=== PATIENT | male | born 1985 | race African-American/Black ===

== ENCOUNTER → 2021-01-26 11:29 | Outpatient (CLI) | payer OTHER, SELFPAY ==
[2021-01-26 15:39] LABS: Vitamin B12 1540 pg/mL (211-911); Vitamin D,25 Hydroxy 10.5 ng/mL
[2021-01-26 15:47] LABS: ALB/GLOB Ratio 0.8 RATIO (0.9-2.4); AST(SGOT) 30 U/L (15-37); Alanine Aminotransfer ALT/SGPT 50 U/L (16-61); Albumin, Serum 3.8 g/dL (3.2-5.0); Alkaline Phosphatase 51 U/L (45-117); Anion Gap 3 (5-15); BUN 13 mg/dL (7-18); BUN/Creat Ratio 10.2 RATIO (10-20); Calcium,Total 9.1 mg/dL (8.5-10.1); Chloride 106 mmol/L (98-107); Cholesterol 201 mg/dL (200); Creatinine, Serum 1.28 mg/dL (0.70-1.30); EST Glomerular Filtration Rate 67 mL/min (>60); Est Glom Filt Rate - Afr Amer 82 mL/min (>60); Globulin 4.7 g/dL (2.2-4.2); Glucose 82 mg/dL (74-106); High Density Lipoprotein 34 mg/dL; Potassium 4.1 mmol/L (3.5-5.1); Protein, Total 8.5 g/dL (6.4-8.2); Sodium Level 139 mmol/L (136-145); Thyroid Stim Hormone (TSH) 1.73 uIU/mL (0.358-3.74); Triglycerides 148 mg/dL; Very Low Density Lipoprotein 30 mg/dL (5-40)
== END ==
PROVIDERS: Visit Provider Family Medicine
DX: Z13.1 Encounter for screening for diabetes mellitus (principal)
CPT/HCPCS: 36415; 80053; 80061; 82306; 82607; 84443

== ENCOUNTER → 2023-09-26 | Outpatient (CLI) | payer OTHER, SELFPAY ==
[2023-09-26 11:03] LABS: Absolute Lymphocyte Count 2.07 X10^3/uL (0.83-4.51); Absolute Neutrophil Count 2.3 X10^3/uL (2.0-7.7); Basophil# 0.03 X10^3/uL; Basophil% 0.6 % (0-1); Eosinophils% 1.9 % (0-5); Hematocrit 43.9 % (40-54); Hemoglobin 13.8 g/dL (13.0-16.5); Lymphocyte # 2.07 X10^3/ul (0.83-4.51); Lymphocyte % 40.3 % (19-41); Mean Corp Hgb Conc 31.4 g/dL (32-36); Mean Corpuscular Hgb 29.3 pg (27.0-32.0); Mean Corpuscular Volume 93.2 fL (80-94); Mean Platelet Vol. 10.9 fl (6.2-12.0); Monocyte# 0.64 X10^3/uL; Monocyte% 12.5 % (0-10); NRBC Flagged by Analyzer 0 % (0-5); Neutrophil # 2.29 X10^3/uL (2.7-7.7); Neutrophil % 44.5 % (47-70); POSITIVE COUNT YES; RBC Distribution Width CV 12.6 % (11.6-14.6); RBC Distribution Width SD 43.5 fl (35.1-43.9); Red Blood Count 4.71 M/mm3 (4.6-6.2); White Blood Count 5.1 K/mm3 (4.4-11.0)
[2023-09-26 11:36] LABS: Vitamin D,25 Hydroxy 20.3 ng/mL
[2023-09-26 11:58] LABS: Differential Indicated SCAN CRITERIA MET
[2023-09-26 11:59] LABS: Platelet Estimate ADEQUATE (ADEQ)
[2023-09-26 12:03] LABS: ALB/GLOB Ratio 0.8 RATIO (0.9-2.4); AST(SGOT) 39 U/L (15-37); Alanine Aminotransfer ALT/SGPT 42 U/L (16-61); Albumin, Serum 3.6 g/dL (3.2-5.0); Alkaline Phosphatase 35 U/L (45-117); Anion Gap 5 (5-15); BUN 21 mg/dL (7-18); BUN/Creat Ratio 16.3 RATIO (10-20); Calcium,Total 8.7 mg/dL (8.5-10.1); Chloride 104 mmol/L (98-107); Creatinine, Serum 1.29 mg/dL (0.70-1.30); EST Glomerular Filtration Rate 66 mL/min (>60); Est Glom Filt Rate - Afr Amer 80 mL/min (>60); Globulin 4.5 g/dL (2.2-4.2); Glucose 81 mg/dL (74-106); Potassium 4.1 mmol/L (3.5-5.1); Protein, Total 8.1 g/dL (6.4-8.2); Sodium Level 137 mmol/L (136-145); Thyroid Stim Hormone (TSH) 0.87 uIU/mL (0.358-3.74)
== END | disposition home or self-care (01) ==
PROVIDERS: PCP Family Medicine; Referring Provider Family Medicine; Visit Provider Family Medicine
DX: R53.83 Other fatigue (principal); R79.89 Other specified abnormal findings of blood chemistry; R53.1 Weakness
CPT/HCPCS: 36415; 80053; 82306; 84403; 84443; 85025

== ENCOUNTER → 2024-10-22 | Outpatient (CLI) | payer OTHER, SELFPAY ==
--- NOTE | 2024-10-22 09:52 | RAD_ITS ---
STUDY: X-RAY - RIGHT KNEE REASON FOR EXAM: Male, 39 years old. RIght knee injury TECHNIQUE: 4 view(s) of the knee. COMPARISON: None. FINDINGS: Normal visualized distal femur. Normal visualized proximal tibia and fibula. Normal proximal tibiofibular articulation. Normal medial femorotibial compartment. Normal lateral femorotibial compartment. Normal patellofemoral articulation. There is a soft tissue prominence in the suprapatellar region suggesting a small volume joint effusion. The soft tissue structures are unremarkable. RAD/Knee 4 or More Views IMPRESSION: Effusion, as described above. MRI may be useful. Electronically Signed: James Meneses MD at 18:23 EST ,
== END | disposition home or self-care (01) ==
PROVIDERS: PCP Family Medicine; Referring Provider Family Medicine; Visit Provider Family Medicine
DX: S80.911A Unspecified superficial injury of right knee, initial encounter (principal); X58.XXXA Exposure to other specified factors, initial encounter
CPT/HCPCS: 73564

== ENCOUNTER → 2024-11-28 | Outpatient (CLI) | payer OTHER, SELFPAY ==
--- NOTE | 2024-11-28 06:45 | MRI_ITS ---
PROCEDURE: MRI right knee without IV contrast REASON FOR EXAM: Lateral-sided pain TECHNIQUE: Multisequence multiplanar MR images of the right knee were obtained without the administration of intravenous contrast. COMPARISON: None FINDINGS Possible small horizontal undersurface tear at the posterior body/horn junction of the medial meniscus. Remaining portions of the medial meniscus are intact. Tiny free edge tear at the body of the lateral meniscus. Remaining portions of the lateral meniscus are intact. Intact anterior and posterior cruciate ligaments. Intact extensor mechanism. Thickening and mildly increased signal of the proximal medial collateral ligament which may relate to chronic sprain. Lateral collateral ligamentous complex is intact. Semimembranosus and pes anserine tendons are within normal limits. Minimal joint effusion without synovitis. Patellofemoral cartilage is intact. Medial and lateral compartment cartilage is intact. Negative for acute fracture. Mild focal bone marrow edema along the peripheral aspect of the medial femoral trochlea. No other marrow edema. Mild patellar and tibial tubercle enthesopathy. Small linear ganglion or varix along the lateral tibiofemoral joint line. No Mckeon's cyst. MRI/Lower Ext Joint Only (Routine) IMPRESSION: 1. Mild focal bone marrow edema along the medial femoral trochlea likely relate d to contusion. Negative for fracture. 2. Possible subtle horizontal undersurface tear at the posterior body of the me dial meniscus. Tiny free edge tear at the body of the lateral meniscus. 3. Chronic low-grade sprain of the medial collateral ligament. 4. Intact cartilage. Reading Location: [facility]
== END | disposition home or self-care (01) ==
PROVIDERS: PCP Family Medicine; Referring Provider Family Medicine; Visit Provider Family Medicine
DX: M25.561 Pain in right knee (principal)
CPT/HCPCS: 73721

== ENCOUNTER 2025-01-11 08:09 | Outpatient (RCR) | payer OTHER, SELFPAY | END 2025-01-11 19:00 | disposition home or self-care (01) | LOC: PT 08:09 | PROVIDERS: PCP Family Medicine; Referring Provider Orthopaedic Surgery Sports Medicine; Visit Provider Orthopaedic Surgery Sports Medicine | DX: S83.241D Other tear of medial meniscus, current injury, right knee, subsequent encounter (principal); M25.561 Pain in right knee | CPT/HCPCS: 97161 ==

== ENCOUNTER → 2025-10-21 | Outpatient (CLI) | payer OTHER, SELFPAY ==
--- OUTSIDE RECORDS SUMMARY | 2025-10-21 10:46 | XMS RPT_ITS | CCD ---
Author Organization [facility] [employer] Care Team Providers Care Chip Unloader Name Role Phone Ajith Drew Referring Unavailable Ajith Drew Attending Unavailable Ambreen, Chalon Primary Care Unavailable Ambreen, Mariposa Attending Unavailable Ambreen, Chalon Primary Care Unavailable Ambreen, Chalon Referring Unavailable Ambreen, Chalon Attending Unavailable Ambreen, Chalon Primary Care Unavailable Ambreen, Chalon Referring Unavailable Mollison, Ajith Attending Unavailable Ambreen, Chalon Primary Care Unavailable Ambreen, Chalon Referring Unavailable Problems Problem Classification Problem Date Documented Da te Episodic/Chronic Joint disorders and dislocations; trauma-related (2 sources) Other tear of medial meniscus, current injury, right knee, initial encounter; Translations: [Tear of medial meniscus of right knee] Onset: 12-31-2024 12-31-2024 Episodic Other non-traumatic joint disorders (2 sources) Pain in right knee; Translations: [Right knee pain] Onset: 12-31-2024 12-31-2024 Episodic Superficial injury; contusion (1 source) Unspecified superficial injury of right knee, initial encounter; Translations: [Unspecified superficial injury of right knee, initial encounter] Onset: 11-14-2024 Episodic Results Test Name Value Interpretation Reference Range Facility Orthopedic Visit Reporton Orthopedic Visit Report [facility] [address] [place] [address] [place], [place] [id number] OFFICE VISIT Date of Service: 12/31/24 MR#: [id number] Acct: [id number] Name: BRIDGETT GARCIA Rep #: [id number] : 1985 Provider: Dr. Ajith dhillon MD Age/Sex: 39/M Location: [facility] Status: Signed Intake Vital Signs 12/31/24 08:13 Height 6 ft 4 in Weight: 270 lb 8 oz BMI 32.9 Intake Visit Reasons: RIGHT KNEE Chief Complaint: right knee pain Accompanied by: Self Is patient in pain?: Yes Pain scale (1-10): 4 Allergies No Known Allergies Allergy (Unverified 12/31/24 08:14) Medications ???Medication ???Instructions ???Recorded ???Confirmed ???Type NK 12/31/24 12/31/24 History PFSH Medical History (Updated 12/31/24 @ 08:09 by Ajith Drew MD) Right knee pain Tear of medial meniscus of right knee Social History (Updated 12/31/24 @ 08:14 by Desire Salas) Smoking Status: Never smoker alcohol intake: never HPI RIGHT KNEE Details: This documentation accurately reflects the service provided and the decisions made by me, Dr. Ajith Drew MD 12/31/24 0808. Part of today???s visit was documented by [ ], acting as scribe. BRIDGETT GARCIA is a 39 year old M here today for right knee pain. 5 months history. The patient describes pain on the medial lateral side. Some trace swelling. No mechanical symptoms. The patient was walking down some steps and then caught himself jammed up the knee did not fall on the knee. The patient has a goal of being very fit and doing some long distance running up to marathon levels. Likes to workout is in the gym every day. Works in [employer]. Has not tried formal treatment other than continuing to be fit and workout in the gym. Supplemental Info [facility] Services [address] [place] [id number] Knee 4 or More Views MR#: [id number] Acct: [id number] Name: BRIDGETT GARCIA Rep #: [id number] : 1985 M 39 From: James Meneses MD PCP: Dr. Mariposa Crook MD Status: REG CLI Study: Knee 4 or More Views Date of Exam: 10/22/24 Exam# [id number] Ordering Dr: Mariposa Crook MD [id number] STUDY: X-RAY - RIGHT KNEE REASON FOR EXAM: Male, 39 years old. RIght knee injury TECHNIQUE: 4 view(s) of the knee. COMPARISON: None. FINDINGS: Normal visualized distal femur. Normal visualized proximal tibia and fibula. Normal proximal tibiofibular articulation. Normal medial femorotibial compartment. Normal lateral femorotibial compartment. Normal patellofemoral articulation. There is a soft tissue prominence in the suprapatellar region suggesting a small volume joint effusion. The soft tissue structures are unremarkable. RAD/Knee 4 or More Views IMPRESSION: Effusion, as described above. MRI may be useful. Electronically Signed: James Meneses MD at 18:23 EST , [facility] [address] [place] [address] [id number] Lower Ext Joint Only (Routine) MR#: [id number] Acct: [id number] Name: BRIDGETT GARCIA Rep #: [id number] : 1985 M 39 From: Gerald Irizarry DO PCP: Dr. Mariposa Crook MD Status: REG CLI Study: Lower Ext Joint Only (Routine) Date of Exam: 11/28/24 Exam# [id number] Ordering Dr: Mariposa Crook MD PROCEDURE: MRI right knee without IV contrast REASON FOR EXAM: Lateral-sided pain TECHNIQUE: Multisequence multiplanar MR images of the right knee were obtained without the administration of intravenous contrast. COMPARISON: None FINDINGS Possible small horizontal undersurface tear at the posterior body/horn junction of the medial meniscus. Remaining portions of the medial meniscus are intact. Tiny free edge tear at the body of the lateral meniscus. Remaining portions of the lateral meniscus are intact. Intact anterior and posterior cruciate ligaments. Intact extensor mechanism. Thickening and mildly increased signal of the proximal medial collateral ligament which may relate to chronic sprain. Lateral collateral ligamentous complex is intact. Semimembranosus and pes anserine tendons are within normal limits. Minimal joint effusion without synovitis. Patellofemoral cartilage is intact. Medial and lateral compartment cartilage (more content not included)... Normal [facility] Knee 4 or More Viewson 10-22 Knee 4 or More Views [facility] [address] [place] [address] Knee 4 or More Views MR#: [id number] Acct: [id number] Name: BRIDGETT GARCIA Rep #: [id number] : 1985 M 39 From: James Meneses MD PCP: Dr. Mariposa Crook MD Status: REG CLI Study: Knee 4 or More Views Date of Exam: 10/22/24 Exam# [id number] Ordering Dr: Mariposa Crook MD [id number] STUDY: X-RAY - RIGHT KNEE REASON FOR EXAM: Male, 39 years old. RIght knee injury TECHNIQUE: 4 view(s) of the knee. COMPARISON: None. FINDINGS: Normal visualized distal femur. Normal visualized proximal tibia and fibula. Normal proximal tibiofibular articulation. Normal medial femorotibial compartment. Normal lateral femorotibial compartment. Normal patellofemoral articulation. There is a soft tissue prominence in the suprapatellar region suggesting a small volume joint effusion. The soft tissue structures are unremarkable. RAD/Knee 4 or More Views IMPRESSION: Effusion, as described above. MRI may be useful. Electronically Signed: James Meneses MD at 18:23 EST , CC: Dr. Mariposa Crook MD Supervisor Boiler Repair: Signed Normal [facility] Absolute lymphocyte countOrd ered By: Mariposa Crook on 09-26-2023 Lymphocytes Auto (Unsp spec) [#/Vol] 2.07 10*3/uL 0.83-4.51 [facility] Basophil percentageOrdered B y: Mariposa Crook on 09-26-2023 Basophils/100 WBC (Bld) 0.6 % 0-[address] [facility] Bilirubin [Mass/Vol] 0.30 mg/dL 0.20-1.00 [facility] Comment on above: For patients on eltr ombopag therapy, use of Dimension [place] TBIL is not recommended. Chloride [Moles/Vol] 104 mmol/L 98-107 [facility] Eosinophils/100 WBC (Bld) 1.9 % 0-5 [facility] Glucose [Mass/Vol] 81 mg/dL 74-106 [facility] Neutrophils (Bld) [#/Vol] 2.3 10*3/uL 2.0-7.7 [facility] Neutrophils/100 WBC (Bld) 44.5 % 47-70 [facility] Potassium [Moles/Vol] 4.1 mmol/L 3.5-5.1 [facility] Protein [Mass/Vol] 8.1 g/dL 6.4-8.2 [facility] Sodium [Moles/Vol] 137 mmol/L 136-145 [facility] Testosterone [Mass/Vol] 470.83 ng/dL [facility] Comment on above: CENTRAL 90% REFERENC E RANGES MALE AGE <50 197.44 - 669.58 ng/dL MALE AGE > or = 50 187.72 - 684.19 ng/dL FEMALE AGE <50 8.38 - 35.01 ng/dL FEMALE AGE > or = 50 <7.00 - 35.92 ng/dL Effective as of 05/19/21 WBC (Bld) [#/Vol] 5.1 10*3/uL 4.4-11.0 [facility] Blood erythrocytes count (nu mber/volume)Ordered By: Mariposa Crook on 09-26-2023 RBC (Bld) [#/Vol] 4.71 10*6/uL 4.6-6.2 [facility] Blood hemoglobin measurement (mass/volume)Ordered By: Mariposa Crook on 09-26-2023 Hemoglobin (Bld) [Mass/Vol] 13.8 g/dL 13.0-16.5 [facility] Blood lymphocytes/100 leukoc ytesOrdered By: Mariposa Crook on 09-26-2023 Lymphocytes/100 WBC (Bld) 40.3 % 19-41 [facility] Blood monocytes/100 leukocyt esOrdered By: Mariposa Crook on 09-26-2023 Monocytes/100 WBC (Bld) 12.5 % 0-[address] [facility] Blood platelet adequacy dete ction by light microscopyOrdered By: Mariposa Crook on 09-26-2023 Platelets LM Ql (Bld) ADEQUATE ADEQ [facility] Blood platelet mean volumeOr dered By: Mariposa Crook on 09-26-2023 Platelet mean volume (Bld) [Entitic vol] 10.9 fL 6.2-12.0 [facility] Determination of erythrocyte mean corpuscular volume (MCV)Ordered By: Mariposa Crook on 09-26-2023 MCV (RBC) [Entitic vol] 93.2 fL 80-[address] [facility] Hematocrit Auto (Bld) [Volum e fraction]Ordered By: Mariposa Crook on 09-26-2023 Hematocrit (Bld) [Volume fraction] 43.9 % 40-54 [facility] Laboratory - Chemistry and C hemistry - challengeOrdered By: [facility]-26-[facility]23 ALP [Catalytic activity/Vol] 35 U/L 45-117 [facility] ALT [Catalytic activity/Vol] 42 U/L 16-61 [facility] CO2 [Moles/Vol] 28.0 mmol/L 21.0-32.0 [facility] Globulin (S) [Mass/Vol] 4.5 g/dL 2.2-4.[address] [facility] Urea nitrogen/Creatinine [Mass ratio] 16.3 mg/mg 10-20 [facility] Laboratory - Hematology and Cell countsOrdered By: [facility] on 09-26-2023 Erythrocyte distribution width (RBC) [Entitic vol] 43.5 fL 35.1-43.9 [facility] Erythrocyte distribution width (RBC) [Ratio] 12.6 % 11.6-14.6 [facility] Immature granulocytes/100 WBC (Bld) 0.200 % 0.0-0.9 [facility] Comment on above: IG% - Immature Granu locytes (promyelocytes, myelocytes and metamyelocytes) > 1% indicates that a LEFT SHIFT is Present. MCH (RBC) [Entitic mass] 29.3 pg 27.0-32.0 [facility] Nucleated RBC/100 WBC (Bld) [Ratio] 0 % 0-5 [facility] MCHC Auto (RBC) [Mass/Vol]Or dered By: Mariposa Crook on 09-26-2023 MCHC (RBC) [Mass/Vol] 31.4 g/dL 32-36 [facility] No Panel InformationOrdered By: Mariposa Crook on 09-26-2023 Estimated GFR (MDRD) Amer 80 mL/min >60 [facility] Comment on above: GFR Calc Estimated GFR (MDRD) Non-Af Amer 66 mL/min >60 [facility] Comment on above: Non- GFR Calc Thyroid Stimulating Hormone (TSH) 0.87 uIU/mL 0.358-3.74 [facility] Vitamin D 25-Hydroxy 20.3 ng/mL [facility] Comment on above: Vitamin D 25(OH) Sta tus Range Deficiency <20 ng/mL (50nmol/L) Insufficiency 20 - 30 ng/mL (50 - 75 nmol/L) Sufficiency 30 - 100 ng/mL (75 - 250 nmol/L) Toxicity >100 ng/mL (>250 nmol/L) Platelets bldOrdered By: Jyothi Crook on 09-26-2023 Platelets (Bld) [#/Vol] TNP [facility] Comment on above: Test not performedPl ease note: For this sample, a platelet estimate is provided rather than a platelet count due to platelet clumping. Other parameters associated with this sample are not affected by platelet clumping. If a more accurate platelet count is required, a redraw of the patient will be necessary. Serum or plasma albumin michaela urement (mass/volume)Ordered By: Mariposa Crook on 09-26-2023 Albumin [Mass/Vol] 3.6 g/dL 3.2-5.0 [facility] Serum or plasma albumin/glob ulin mass ratioOrdered By: Mariposa Crook on 09-26-2023 Albumin/Globulin [Mass ratio] 0.8 {ratio} 0.9-2.4 [facility] Serum or plasma calcium michaela urement (mass/volume)Ordered By: [facility] on 09-26-2023 Calcium [Mass/Vol] 8.7 mg/dL 8.5-10.1 [facility] Serum or plasma creatinine m easurement (mass/volume)Ordered By: [facility] on 09-26-2023 Creatinine [Mass/Vol] 1.29 mg/dL 0.70-1.30 [facility] Comment on above: The validity of the calculated GFR & GFRAA in patients over 70 years has not been determined. Clinical correlation is essential. Serum or plasma urea nitroge n measurement (mass/volume)Ordered By: [facility] on 09-26-2023 Urea nitrogen [Mass/Vol] 21 mg/dL 7-18 [facility] Thin prep Papanicolaou smear with manual screeningOrdered By: [facility] on 09-26-2023 Thin prep Papanicolaou smear with manual screening 39 U/L 15-37 [facility] Thin prep Papanicolaou smear with manual screening 5 5-15 [facility] Encounters Encounter Date Encounter Type Care Provider Facility Start: 01-11-2025 End: 01-11-2025 ambulatory [facility] Facility:[facility] Start: 12-31-2024 End: 12-31-2024 ambulatory [facility] Facility:[facility] Start: 11-28-2024 End: 11-28-2024 ambulatory [facility] Facility:[facility] Start: 10-22-2024 End: 10-22-2024 ambulatory [facility] Facility:[facility] Start: 09-26-2023 End: 09-26-2023 ambulatory [facility] Work Phone: Start: 09-26-2023 End: 09-26-2023 Patient encounter procedure [facility] Work Phone: Payers Date Payer Category Payer Self-pay [id number] 2024 Self-pay [id number] 2021 Unknown [id number] 2 [id number] Unknown [id number] Unknown [id number] Unknown [id number] 2.16.8 [id number] Unknown [id number] [id number] [id number] Social History Date Type Detail Facility Tobacco smoking stat [facility] Unknown if ever smoked [facility] Work Phone: Start: 1985 Sex Assigned At Male [facility] Tobacco smoking stat [facility] Unknown if ever smoked [facility] Work Phone: Evaluation note Note Date & Type Note Facility Evaluation note No assessment information availa ble [facility] Work Phone: Reason for referral (narrative) Note Date & Type Note Facility Reason for referral (narrative) No reason for referral information available [facility] Work Phone: Chief Complaint and Reason for Visit Chief Complaint EORDER Summary Purpose Family History No Family History Records Found Advance Directives No Advanced Directives Records Found Additional Source Comments Care Teams (unrecognized sec tion and content) Team Status: Active Member Role Status Bernardo Crook MD Primary Care Provider Active Team Status: Inactive Member Role Status Bernardo Crook MD Primary Care Provide r, Attending Provider, Referring Provider Active Goals (unrecognized section and content) Goals may be documented in a n alternate sectionGoals may be documented in an alternate section (unrecognized sect ion and content) No Status Records Found INFORMATION SOURCE (unrecogn ized section and content) DATE CREATED AUTHOR 06/22/2025 [facility] FOR RECORDS PERTAINING TO PATIENTS WHO ARE OR HAVE BEEN ENROLLED IN A CHEMICAL DEPENDENCY/SUBSTANCEABUSE PROGRAM, SOME INFORMATION MAY BE OMITTED. This clinical summary was aggregated from multiple sources. Caution should be exercised in using it in the provision of clinical care. This summary normalizes information from multiple sources, and as a consequence, information in this document may materially change the coding, format and clinical context of patient data. In addition, data may be omitted in some cases. CLINICAL DECISIONS SHOULD BE BASED ON THE PRIMARY CLINICAL RECORDS. [facility]. provides no warranty or guarantee of the accuracy or completeness of information in this document.
[2025-10-21 12:08] LABS: Hematocrit 43.6 % (40-54); Hemoglobin 14.6 g/dL (13.0-16.5); Mean Corp Hgb Conc 33.5 g/dL (32-36); Mean Corpuscular Volume 88.3 fL (80-94); Mean Platelet Vol. 11.2 fl (6.2-12.0); Platelet Count 168 K/mm3 (150-450); RBC Distribution Width CV 12.8 % (11.6-14.6); RBC Distribution Width SD 41.1 fl (35.1-43.9); Red Blood Count 4.94 M/mm3 (4.6-6.2); White Blood Count 4.5 K/mm3 (4.4-11.0)
[2025-10-21 12:44] LABS: Cholesterol 233 mg/dL (<=200); Low Density Lipoprotein Calc. 174 mg/dL; Triglycerides 138 mg/dL; Very Low Density Lipoprotein 28 mg/dL (5-40); cholesterol:hdl ratio screen 7.04
[2025-10-21 13:12] LABS: Vitamin B12 877 pg/mL (180-914); Vitamin D,25 Hydroxy 155.0 ng/mL (30-100)
== END | disposition home or self-care (01) ==
PROVIDERS: PCP Family Medicine; Referring Provider Family Medicine; Visit Provider Family Medicine
DX: Z00.00 Encounter for general adult medical examination without abnormal findings (principal); Z13.1 Encounter for screening for diabetes mellitus; Z13.220 Encounter for screening for lipoid disorders; E55.9 Vitamin D deficiency, unspecified; R79.89 Other specified abnormal findings of blood chemistry; R68.82 Decreased libido
CPT/HCPCS: 36415; 80061; 82306; 82607; 83036; 84403; 85027